=== PATIENT | female | born 1970 | race Caucasian/White ===

== ENCOUNTER 2017-10-07 03:03 | Inpatient (IN) | payer BC ==
[~2017-10-07] VITALS: Ht 157.5 cm; Wt 86.2 kg
[2017-10-07] VITALS (7 sets, daily range): BP systolic 111–140; BP diastolic 65–70
[2017-10-07] MEDS ORDERED: PANTOPRAZOLE 40 MG 10ML VIAL IV STA (03:11)
[2017-10-07] MEDS ORDERED: ONDANSETRON HCL INJ 2 MG/ML VIAL IV STA ×4 (03:11→09:34)
[2017-10-07] MEDS ORDERED: DICYCLOMINE HCL 20 MG/2 ML VIAL IM ONE (03:15)
[2017-10-07] MEDS ORDERED: SODIUM CHLORIDE 0.9% 1000ML 1,000 ML IV ONE ×2 (03:15→04:15)
[2017-10-07 03:29] LABS: BASOPHILS % 0.4 % (0.0-1.0); BILIRUBIN,URINE NEGATIVE (NEGATIVE); EOSINOPHILS % 0.4 % (0.0-6.0); HEMATOCRIT 41.8 % (34.2-44.1); HEMOGLOBIN 14.4 g/dL (12.0-16.0); KETONES,URINE NEGATIVE (NEGATIVE); LEUKOCYTE ESTERASE ,URINE TRACE (NEGATIVE); LYMPHOCYTES # (AUTO) 0.9 (1.0-3.2); MEAN CORPUSCULAR HEMOGLOBIN 31.6 pg (28-32); MEAN CORPUSCULAR HGB CONC 34.4 g/dL (31-35); MEAN CORPUSCULAR VOLUME 91.7 fL (81-99); MONOCYTES # (AUTO) 0.9 (0.2-0.8); MONOCYTES % 7.5 % (4.4-11.3); NEUTROPHILS # (AUTO) 9.4 (2.1-6.9); NEUTROPHILS % 83.4 % (38.7-80.0); NITRITE,URINE NEGATIVE (NEGATIVE); PLATELET COUNT 237 x10e3/uL (140-360); PROTEIN,URINE DIPSTICK NEGATIVE (NEGATIVE); RED BLOOD COUNT 4.56 x10e6/uL (3.6-5.1); RED CELL DISTRIBUTION WIDTH 12.5 % (11.7-14.4); URINE UROBILINOGEN 0.2 mg/dL (0.2 - 1)
[2017-10-07 03:30] LABS: CLARITY,URINE CLEAR (CLEAR); COLOR,URINE YELLOW (YELLOW)
[2017-10-07 03:38] LABS: BACTERIA,URINE FEW /HPF; EPITHELIAL CELLS,URINE FEW /LPF; RBC,URINE 0-5 /HPF (0-5)
[2017-10-07 04:05] LABS: ALANINE AMINOTRANSFERASE 25 IU/L (0-55); ALBUMIN 3.9 g/dL (3.5-5.0); ALBUMIN/GLOBULIN RATIO 1.3 (0.8-2.0); ALKALINE PHOSPHATASE 61 IU/L (40-150); AMYLASE 34 U/L (25-125); ANION GAP 17.1 mmol/L (8-16); BLOOD UREA NITROGEN 16 mg/dL (7-26); BUN/CREATININE RATIO 23 (6-25); CALCIUM 8.6 mg/dL (8.4-10.2); CARBON DIOXIDE 22 mmol/L (22-29); CHLORIDE 105 mmol/L (98-107); CREATININE, SERUM 0.71 mg/dL (0.57-1.11); EST GLOMERULAR FILTRATION RATE > 60 ML/MIN (60-); GLUCOSE 124 mg/dL (74-118); LIPASE 12 U/L (8-78); POTASSIUM 4.1 mmol/L (3.5-5.1); SODIUM 140 mmol/L (136-145)
[2017-10-07] MEDS ORDERED: ACETAMINOPHEN 1000 MG/100 ML IV STA (05:34)
[2017-10-07] MEDS ORDERED: SODIUM CHLORIDE 0.9% 50ML 50 ML ONE ×2 (05:44→08:07)
--- NOTE | 2017-10-07 05:45 | Diagnostic Imaging Report ---
EXAMINATION: ABDOMEN ACUTE SERIES W/PA CXR INDICATION: Abdominal pain. COMPARISON: None FINDINGS: TUBES and LINES: None. LUNGS: Lungs are well inflated. Lungs are clear. There is no evidence of pneumonia or pulmonary edema. PLEURA: No pleural effusion or pneumothorax. HEART AND MEDIASTINUM: The cardiomediastinal silhouette is unremarkable. BONES AND SOFT TISSUES: No acute osseous lesion. Soft tissues are unremarkable. ABDOMEN: No free air under the diaphragm. Nonobstructive bowel gas pattern, however, in upright position, there are few air-fluid levels in the small bowel with small bowel diameter of 3 cm. IMPRESSION: 1. No acute thoracic abnormality. 2. Multiple air-fluid levels along the small bowel without significant dilatation suspicious for ileus or enteritis. Signed by: Dr. Eamon Fuchs M.D. on 10/07/2017 5:41 AM
[2017-10-07] MEDS ORDERED: MORPHINE SULFATE 2 MG/ML SYR IV STA ×2 (05:59→08:09)
[2017-10-07] MEDS ORDERED: SODIUM CHLORIDE 0.9% 1000ML 1,000 ML IV SCH (06:00)
[2017-10-07] MEDS ORDERED: DIATRIZOATE MEGL/DIATRIZOA SOD 30 ML BTL PO ONE (06:06)
[2017-10-07] MEDS ORDERED: METRONIDAZOLE 500MG/NS 100ML 100 ML IV STA (07:58)
[2017-10-07] MEDS ORDERED: LEVOFLOXACIN 500MG/D5W 100ML 100 ML IV STA (07:58)
[2017-10-07] MEDS ORDERED: FAMOTIDINE 20 MG/2 ML VIAL IV STA (07:58)
[2017-10-07] MEDS ORDERED: MORPHINE SULFATE 4 MG/ML SYR IV STA (07:58)
[2017-10-07] MEDS ORDERED: IOPAMIDOL 370 MG/ML 200 ML INFUS..BTL INJ ONE (08:07)
[2017-10-07] MEDS: SODIUM CHLORIDE 0.9% 1000ML 1,000 ML IV SCH ×2 (08:21→16:38)
[2017-10-07 08:39] LABS: CREATINE KINASE MB 0.6 ng/mL (0-5.0)
--- OUTSIDE RECORDS SUMMARY | 2017-10-07 08:53 | XMS REPORT ---
Author Author [facility] Address Unknown Phone Unavailable Care Team Providers Care Docketing Specialist Name Role Phone ALICIA BENJAMIN Unavailable Unavailable Problems This patient has no known problems. Allergies, Adverse Reactions, Alerts This patient has no known allergies or adverse reactions. Medications This patient has no known medications. Results Test Description Test Time Test Comments Text Results Atomic Results Result Comments ABDOMEN ACUTE SERIES W/PA CXR [place] [address] Patient Name: DARLING BROWN V MR #: [id number] : 1970 Age/Sex: 47/F Req #: [id number] Adm Physician: Ordered by: ALICIA BENJAMIN MD Report #: [id number] Location: ER Room/Bed: ___ Procedure: [id number] DX/ABDOMEN ACUTE SERIES W/PA CXR Exam Date: Exam Time: REPORT STATUS: Signed EXAMINATION: ABDOMEN ACUTE SERIES W/PA CXR INDICATION: Abdominal pain. COMPARISON: None FINDINGS: TUBES and LINES: None. LUNGS: Lungs are well inflated. Lungs are clear. There is no evidence of pneumonia or pulmonary edema. PLEURA: No pleural effusion or pneumothorax. HEART AND MEDIASTINUM: The cardiomediastinal silhouette is unremarkable. BONES AND SOFT TISSUES: No acute osseous lesion. Soft tissues are unremarkable. ABDOMEN: No free air under the diaphragm. Nonobstructive bowel gas pattern, however, in upright position, there are few air-fluid levels in the small bowel with small bowel diameter of 3 cm. IMPRESSION: 1. No acute thoracic abnormality. 2. Multiple air-fluid levels along the small bowel without significant dilatation suspicious for ileus or enteritis. Signed by: Dr. Eamon Fuchs M.D. on 10/07/2017 5:41 AM Dictated By: EAMON JAMESON MD 0 Transcribed By: CHASTITY on 10/07/17540 COPY TO: ALICIA BENJAMIN MD
--- NOTE | 2017-10-07 08:58 | Diagnostic Imaging Report ---
PROCEDURE:CT ABDOMEN AND PELVIS WITH CONTRAST COMPARISON:None. INDICATIONS:Small bowel obstruction TECHNIQUE: Routine protocol Volumetric CT abdomen and pelvis after the ministration of 100 mL Isovue-370 enteric contrast and 100 mL positive water-soluble enteric contrast. Multiplanar reformatted images. DLP: 754.92 FINDINGS: Trace right lower lobe subsegmental atelectasis. Lung bases otherwise clear. No pleural effusions. Normal heart size. Liver: Diffuse low attenuation. Midaxillary craniocaudal span 16 cm. Gallbladder: Normal Pancreas: Normal Spleen: Normal Adrenal glands: Normal Kidneys: Normal Urinary bladder: Normal Uterus and adnexa: Hysterectomy Bowel: Normal caliber. Asymmetric gastric wall thickening along the distal greater curvature at the antrum (see image 24, series 301 and 25, series 2) measuring up to 1.7 cm. Normal contrast opacification of the small bowel through the cecum. Mild descending colon diverticulosis. Peritoneum: Normal Vasculature: Normal caliber. Lymph nodes: Nonspecific subcentimeter mesenteric lymphadenopathy most prominent along the jejunal branches (for example, image 44, series 2). Associated mesenteric fat stranding. No retroperitoneal pelvic or inguinal lymphadenopathy. Skeleton: Intact. The mild multilevel degenerative disc disease with relative loss of normal lumbar lordosis. Soft tissues: Normal CONCLUSION: 1. No small bowel obstruction. 2. Asymmetric wall thickening of the stomach. Subcentimeter mesenteric lymph nodes with mild mesenteric fat stranding. Broad differential for described findings including etiologies such as focal gastritis, lymphoma, gastric malignancy etc. Consider GI consult. Dictated by: Jamil Alex M.D. on 10/07/2017 at 8:59 Electronically approved by: Jamil Alex M.D. on 10/07/2017 at 8:59
[2017-10-07] MEDS ORDERED: HYDROMORPHONE 1MG/1ML INJ IV STA (09:34)
[2017-10-07] MEDS ORDERED: PANTOPRAZOLE SO40 MG PO (10:42)
[2017-10-07] MEDS ORDERED: ESCITALOPRAM OX10 MG (10:42)
[2017-10-07] MEDS ORDERED: AMITRIPTYLINE H25 MG PO (10:42)
[2017-10-07] MEDS ORDERED: HYDROCHLOROTHIA25 MG (10:42)
[2017-10-07] MEDS ORDERED: METRONIDAZOLE 500MG/NS 100ML 100 ML IV SCH (14:00)
[2017-10-07] MEDS: ONDANSETRON HCL INJ 2 MG/ML VIAL IV PRN (15:28)
[2017-10-07] MEDS: MORPHINE SULFATE 2 MG/ML SYR IV PRN (15:28)
[2017-10-07] MEDS: FAMOTIDINE 20 MG/2 ML VIAL IV SCH (16:38)
[2017-10-07] MEDS ORDERED: ACETAMINOPHEN 1000 MG/100 ML IV SCH (18:00)
[2017-10-07] MEDS: METRONIDAZOLE 500MG/NS 100ML 100 ML IV SCH (20:58)
--- NOTE | 2017-10-07 21:11 | History and Physical ---
CHIEF COMPLAINT: Abdominal pain. Nausea and vomiting, distention and ileus. HISTORY: The patient is a 47-year-old female with history of complete hysterectomy and appendectomy. She was at [employer] having dinner, and apparently she had an acute episode where her abdomen was absolutely distended. The patient was having severe pain. She stopped at a nearby hotel and there the patient was having severe nausea and vomiting. She ate the same food as everyone in her green party, but no one else was sick. The patient was subsequently brought into the hospital for an evaluation. The KUB showed that she has multiple air fluid levels along the small bowel without significant dilatation suspicious for ileus or enteritis. Patient subsequently had a CT scan of the abdomen and pelvis early this morning and showed that she has asymmetric wall thickening of the stomach. There is possibility of focal gastritis. The patient will need to have a GI consultation. She did have endoscopy a few years ago without any significant problem other than gastritis. The patient is otherwise stable. She was on omeprazole in the past. PAST MEDICAL HISTORY: Reflux gastritis. Complete hysterectomy. Appendectomy. Previous ileus. HOME MEDICATIONS: Amitriptyline, Lexapro, hydrochlorothiazide and Protonix. ALLERGIES: NO KNOWN ALLERGIES. SOCIAL HISTORY: Patient does not smoke or significantly drink alcohol or recreational drug use. REVIEW OF SYSTEMS: As mentioned. PHYSICAL EXAMINATION: GENERAL: The patient seems weak, but she is not in any distress. VITAL SIGNS: Temperature is 101. Blood pressure is 134/68. Pulse rate is 116. Respiration is 18. HEENT: Normocephalic, atraumatic, anicteric. NECK: Supple grossly. PULMONARY: Clear. CARDIOVASCULAR: Regular rate and rhythm with tachycardia with fever. ABDOMEN: Is mildly distended with some tenderness on palpation, but no guarding or rebound tenderness. EXTREMITIES: No gross cyanosis or edema. NEUROLOGIC: No focal deficit. LABORATORY: WBC is 11.3. Hemoglobin 14.4. Hematocrit 42. Platelets is 237,000. Chemistry: Sodium is 140, potassium 4.1, chloride 105, bicarb 22. BUN is 16. Creatinine 0.7. Glucose is 124. Urinalysis with trace leukocyte esterase. CT scan of abdomen and pelvis showed that the patient has asymmetric wall thickening of the stomach. Subcentimeter mesenteric lymph node with mild mesenteric fat straining. IMPRESSION: 1. Ileus associated with abdominal distention. 2. Abdominal pain. 3. Nausea and vomiting, [id number] but much improved. 4. Dehydration. PLAN: Continue with IV rehydration and hold off some of patient's home medication. Antibiotics for the acute gastritis, enteritis. Will consult Dr. Dav Raman. Repeated lab work in the morning. Job#: [id number] GH
[2017-10-08] VITALS (9 sets, daily range): BP systolic 125–161; BP diastolic 60–75
[2017-10-08] MEDS: ONDANSETRON HCL INJ 2 MG/ML VIAL IV PRN ×2 (02:01→10:49)
[2017-10-08] MEDS: MORPHINE SULFATE 2 MG/ML SYR IV PRN (02:01)
[2017-10-08] MEDS: ACETAMINOPHEN 1000 MG/100 ML IV SCH ×6 (02:02→22:56)
[2017-10-08] MEDS: SODIUM CHLORIDE 0.9% 1000ML 1,000 ML IV SCH (02:04)
--- NOTE | 2017-10-08 05:48 | Diagnostic Imaging Report ---
EXAM: ABDOMEN COMP INCL UPR or DECUB DATE: 10/08/2017 8:21 AM Time stamp on exam: 5:22 AM INDICATION: Small bowel ileus, small bowel obstruction COMPARISON: CT abdomen and pelvis on 10/07/2017 FINDINGS: LINES/TUBES: None BOWEL PATTERN: No evidence for obstruction. SOFT TISSUES: Multiple pelvic phleboliths LUNG BASES: Not included BONES: No acute findings. IMPRESSION: Nonobstructive bowel gas pattern Signed by: Dr. Eamon Fuchs M.D. on 10/08/2017 5:44 AM
[2017-10-08] MEDS: METRONIDAZOLE 500MG/NS 100ML 100 ML IV SCH ×3 (05:55→21:13)
[2017-10-08 06:32] LABS: BASOPHILS % 0.2 % (0.0-1.0); EOSINOPHILS % 0.3 % (0.0-6.0); HEMATOCRIT 34.9 % (34.2-44.1); HEMOGLOBIN 11.5 g/dL (12.0-16.0); LYMPHOCYTES # (AUTO) 1.6 (1.0-3.2); MEAN CORPUSCULAR HEMOGLOBIN 30.8 pg (28-32); MEAN CORPUSCULAR VOLUME 93.6 fL (81-99); MONOCYTES # (AUTO) 0.6 (0.2-0.8); MONOCYTES % 9.6 % (4.4-11.3); NEUTROPHILS # (AUTO) 3.8 (2.1-6.9); NEUTROPHILS % 62.7 % (38.7-80.0); PLATELET COUNT 150 x10e3/uL (140-360); RED BLOOD COUNT 3.73 x10e6/uL (3.6-5.1); RED CELL DISTRIBUTION WIDTH 12.5 % (11.7-14.4)
[2017-10-08 07:41] LABS: ALANINE AMINOTRANSFERASE 43 IU/L (0-55); ALBUMIN 3.1 g/dL (3.5-5.0); ALBUMIN/GLOBULIN RATIO 1.1 (0.8-2.0); ALKALINE PHOSPHATASE 53 IU/L (40-150); ANION GAP 12.8 mmol/L (8-16); BLOOD UREA NITROGEN 7 mg/dL (7-26); BUN/CREATININE RATIO 11 (6-25); CALCIUM 7.8 mg/dL (8.4-10.2); CARBON DIOXIDE 25 mmol/L (22-29); CHLORIDE 105 mmol/L (98-107); CREATININE, SERUM 0.65 mg/dL (0.57-1.11); EST GLOMERULAR FILTRATION RATE > 60 ML/MIN (60-); GLUCOSE 104 mg/dL (74-118); LIPASE 15 U/L (8-78); SODIUM 140 mmol/L (136-145)
[2017-10-08 07:43] LABS: POTASSIUM 2.8 mmol/L (3.5-5.1)
[2017-10-08 07:47] LABS: BAND NEUTROPHILS % (MANUAL) 3 %; BLAST CELLS % MANUAL 2; LYMPHOCYTES % (MANUAL) 19 % (19-48); MONOCYTES % (MANUAL) 8 % (3.4-9.0); NEUTROPHILS % (MANUAL) 63 % (40-74)
[2017-10-08 07:51] LABS: ANISOCYTOSIS SLIGHT; HYPOCHROMASIA SLIGHT; PLATELET ESTIMATE ADEQUATE; PLATELET MORPHOLOGY COMMENT NORMAL
[2017-10-08 07:52] LABS: RBC MORPHOLOGY COMMENT NORMAL
[2017-10-08] MEDS ORDERED: SOD CHL 0.45%/POT CHL 20MEQ 1,000 ML IV SCH (08:45)
[2017-10-08] MEDS ORDERED: POTASSIUM CHLORIDE 20 MEQ TAB CR PO ONE (09:00)
[2017-10-08] MEDS: POTASSIUM CHL IV SCH (09:21)
[2017-10-08] MEDS: FAMOTIDINE 20 MG/2 ML VIAL IV SCH ×2 (09:21→17:27)
[2017-10-08] MEDS: SODIUM CHLORIDE 0.45% IV SCH (09:21)
[2017-10-08] MEDS: LEVOFLOXACIN 500MG/D5W 100ML 100 ML IV SCH (09:21)
--- NOTE | 2017-10-08 14:25 | Operative Report ---
DATE OF PROCEDURE: October 08, 2017 REFERRING PHYSICIAN: Dr. Christiano You. PROCEDURE PERFORMED: Esophagogastroduodenoscopy with biopsies. INDICATIONS FOR ESOPHAGOGASTRODUODENOSCOPY: Upper abdominal pain, nausea and vomiting, abnormal CT scan of the abdomen. MEDICATION: Patient was done under MAC. Please see anesthesiologist's note. PROCEDURE: With the patient in the left lateral decubitus position, the flexible fiberoptic Olympus gastroscope was introduced into the esophagus under direct visualization without any difficulty. The mucosa overlying the distal esophagus revealed some patchy areas of erythema. The scope was then advanced with ease into the stomach. Mucosa overlying the antrum and the body revealed some diffuse erythema and moderate edema, and biopsies were obtained and sent to stain for H. pylori. Pylorus appeared to be of normal contour and shape, was intubated with ease, and the scope was advanced all the way to the 2nd portion of the duodenum. An approximately 8 mm submucosal polypoid lesion with yellowish overhue was noted, and it was biopsied and creamy liquid squirted out of the area, which is suspicious for a lymphoid telangiectasia. The mucosa overlying the duodenal bulb appeared to be within normal limits. The scope was then withdrawn back into the stomach and retroflexed, and the mucosa overlying the fundus and the cardia appeared to be within normal limits. The scope was then straightened out. The stomach was decompressed. The scope was subsequently withdrawn. Patient tolerated procedure well. IMPRESSION: 1. Distal esophagitis. 2. Gastritis biopsied. Biopsies sent to stain for H. pylori. 3. Rule out lymphoid telangiectasia, 2nd portion duodenum. PLAN: Follow up histology. Initiate Protonix 40 mg 1 p.o. a.c. b.i.d. If patient's upper abdominal pain persists, will need to do an ultrasound of the gallbladder and a HIDA scan with ejection fraction. Job#: [id number] EV cc:CHRISTIANO YOU MD
[2017-10-08] MEDS ORDERED: ACETAMINOPHEN/ASPIRIN/CAFFEINE 1 EA TAB PO PRN (17:00)
[2017-10-08] MEDS ORDERED: LIDOCAINE HCL 2% LOCAL INJ 5 ML SDV VIAL INJ ONE (18:02)
[2017-10-08] MEDS ORDERED: PROPOFOL IV EMULSION 10 MG/ML 50 ML VIAL ONE (18:02)
[2017-10-08] MEDS ORDERED: MIDAZOLAM HCL 2 MG/2 ML VIAL ONE (18:34)
[2017-10-08] MEDS ORDERED: SODIUM CHLORIDE 0.9% 250ML 250 ML ONE (21:01)
[2017-10-09] VITALS: BP 132/61
[2017-10-09] MEDS: SODIUM CHLORIDE 0.45% IV SCH ×2 (00:42→05:47)
[2017-10-09] MEDS: POTASSIUM CHL IV SCH ×2 (00:42→05:47)
[2017-10-09 04:00] VITALS: BP 135/73
[2017-10-09] MEDS: METRONIDAZOLE 500MG/NS 100ML 100 ML IV SCH (05:54)
[2017-10-09 07:25] LABS: MAGNESIUM 1.8 MG/DL (1.3-2.1); PHOSPHORUS 1.6 MG/DL (2.3-4.7)
[2017-10-09 07:56] LABS: ANION GAP 13.1 mmol/L (8-16); BLOOD UREA NITROGEN < 5 mg/dL (7-26); CALCIUM 8.4 mg/dL (8.4-10.2); CARBON DIOXIDE 22 mmol/L (22-29); CHLORIDE 110 mmol/L (98-107); CREATININE, SERUM 0.59 mg/dL (0.57-1.11); EST GLOMERULAR FILTRATION RATE > 60 ML/MIN (60-); GLUCOSE 100 mg/dL (74-118); POTASSIUM 4.1 mmol/L (3.5-5.1); SODIUM 141 mmol/L (136-145)
[2017-10-09 08:08] VITALS: BP 140/78
[2017-10-09 08:10] LABS: BUN/CREATININE RATIO 8 (6-25)
[2017-10-09 08:14] VITALS: BP 140/78
[2017-10-09] MEDS: LEVOFLOXACIN 500MG/D5W 100ML 100 ML IV SCH (09:17)
[2017-10-09] MEDS: FAMOTIDINE 20 MG/2 ML VIAL IV SCH (09:17)
[2017-10-09 12:11] VITALS: BP 125/76
--- NOTE | 2017-10-09 14:52 | Discharge Summary ---
FINAL DIAGNOSES 1. Acute ileus. 2. Acute intractable nausea and vomiting associated with multiple electrolyte disorders. 3. Electrolyte derangement. 4. Hypo-kalemia, magnesia and phosphorus. SUMMARY: This 47-year-old female has history of reflux on Protonix and history of hypertension. Patient was on hydrochlorothiazide. However, the patient was at the restaurant when she had an episode where her abdomen absolutely distended. She came into the hospital with symptoms of intractable nausea and vomiting and abdominal distention. CT scan showed ileus. Patient subsequently underwent an EGD. Found to have otherwise distal esophagitis and gastritis. Patient will need to follow up with Dr. Dav Raman as an outpatient for any biopsy. Patient is stable today. She will discharge today. She tolerated all her oral intake and GI soft diet. She will continue with her amitriptyline, Lexapro, hydrochlorothiazide and Protonix. She will take Zofran as needed and potassium 10 mEq daily. Patient is to follow up with her family doctor and Dr. Dav Raman as an outpatient for followup. The patient will need repeated lab work. The patient is stable and discharged home today. Harmon diet. Job#: [id number]
== END 2017-10-09 12:35 | disposition home or self-care (01) | DRG 390 ==
LOC: ER 03:03 → ERHOLD 08:51 → IMCU 09:47 → OBSVTOIN 10-08 08:43 → MED/SURG 10-08 12:47
PROVIDERS: ADMIT Internal Medicine; ATTEND Internal Medicine
PROC: 0DB68ZX Excision of Stomach, Via Natural or Artificial Opening Endoscopic, Diagnostic (ICD-10-PCS; 2017-10-08)
PROC: 0DB78ZX Excision of Stomach, Pylorus, Via Natural or Artificial Opening Endoscopic, Diagnostic (ICD-10-PCS; 2017-10-08)
PROC: 0DB98ZX Excision of Duodenum, Via Natural or Artificial Opening Endoscopic, Diagnostic (ICD-10-PCS; principal; 2017-10-08 12:00)
DX: K56.7 Ileus, unspecified (principal); E83.41 Hypermagnesemia; E87.6 Hypokalemia; E83.39 Other disorders of phosphorus metabolism; E86.0 Dehydration; K20.9 Esophagitis, unspecified; K29.70 Gastritis, unspecified, without bleeding
CPT/HCPCS: 36415; 43239; 74022; 74177; 80048; 80053; 81001; 82150; 82550; 82553; 83690; 83735; 84100; 84132; 84484; 85025; 87086; 88305; 88312; 93005; 96360; 96372; 96374; 96376; 99284; G0378; J0500; J1170; J1956; J2001; J2250; J2270; J2405; J3480; J7030; J7050; Q9967